=== PATIENT | male | born 1980 | race Caucasian/White ===

== ENCOUNTER 2019-10-14 22:47 | Emergency (ER) | payer MEDICAID, SELFPAY ==
[2019-10-14 22:48] VITALS: BP 126/85; PULSE 89; RESP 16; TEMP 36.8; BMI 25.3
[2019-10-14 22:51] VITALS: BP 126/85; PULSE 89; RESP 16; TEMP 36.8
--- NOTE | 2019-10-14 23:00 | ED.VIS.GEN ---
History of Present Illness Chief Complaint: Bite Informant: Patient Narrative: Patient presents with a right ankle insect bite that started yesterday today he started developing some erythema. He has no fever chills cough or congestion he has no inguinal pain or any other symptoms he has no immunocompromise state and he has no medical problems. Past Medical History - Allergies and Home Meds Allergies/Adverse Reactions: Allergies No Known Allergies Allergy (Verified 10/14/19 22:51) Primary Care Physician: Mark Delatorre MD [Primary Care Provider] - Past Medical History: None Smoking Status: Never smoker Review of Systems General: Denies: Fever Cardiovascular: Denies: Chest pain Respiratory: Denies: Dyspnea, Cough Musculoskeletal: Reports: - - Right ankle pain as in HPI Skin: Reports: Rash. Denies: Abscess Neurological: Denies: Weakness, Parasthesia Hematologic: Denies: Easy bruising, Easy bleeding Physical Exam Vital Signs/Narrative: Vital Signs Temp Pulse Resp BP 10/14/19 22:51 98.2 F 89 16 126/85 H 10/14/19 22:48 98.2 F 89 16 126/85 H General: Well nourished, Well developed, No Acute Distress ENT: Moist mucous membranes Cardiovascular: Regular rate, Regular rhythm Respiratory: No distress, CTA bilaterally Abdomen: Soft, Nontender Extremities: - - Right ankle on the medial side shows a very small punctate insect bite there is no central necrosis surrounded there is surrounding erythema with slight calor of about 8 cm, there is no crepitus or abscess. Skin: - - Cellulitis as above Neurological: Normal Strength, Normal Sensation Diagnostic/Tx/Re-eval - Medical Decision Making Patient has small surrounding cellulitis, he has immunocompetent. He has no medical problems I feel safe discharging him with p.o. antibiotics he has normal vitals and blood work is not needed at this time. ED Disposition - Plan for ED Patient: Disposition: Home or Assisted Living Diagnosis: Cellulitis Instructions: ED Cellulitis Prescriptions: Smz/Tmp Ds [Bactrim Ds] 1 tab PO BID #20 tab Prescription Printed Cephalexin [Keflex] 500 mg PO 4X/DAY #40 cap Prescription Printed Referrals: Mark Delatorre MD [Primary Care Provider] - 2 Days for wound check
[2019-10-14] MEDS: Smz/Tmp Ds Tablet 1 TABLET PO (23:09)
[2019-10-14] MEDS: Cephalexin 250 MG Capsule 500 MG PO (23:09)
== END 2019-10-14 23:23 | disposition home or self-care (01) ==
LOC: ED 23:18
PROVIDERS: Emergency Provider Emergency Medicine
DX: L03.115 Cellulitis of right lower limb (principal)
CPT/HCPCS: 99283

== ENCOUNTER 2019-11-05 21:24 | Emergency (ER) | payer MEDICAID, SELFPAY ==
[2019-11-05 21:24] VITALS: BP 159/99; PULSE 90; RESP 16; TEMP 36.6; O2SAT 97; BMI 24.3
--- NOTE | 2019-11-05 22:06 | ED.DCSUM_ITS ---
- ER Visit Summary Date of Service: 11/05/19 Chief Complaint: Dental pain History of Present Illness: The patient is a 39 M who presents with left lower dental pain that has been getting worse over the past 3 days. Patient describes it as aching. Patient states it is gradually gotten worse. Patient denies any fevers or chills. Patient states his pain improves somewhat with ibuprofen. Patient states nothing makes it worse. Patient denies any facial or jaw swelling. Patient denies any hot or cold sensitivity. Physical Examination: Vital signs are stable. Patient is afebrile. Patient is in no acute distress. Oral mucosa is pink and moist. There is tenderness to percussion over the left lower second and third molars. There is some mild gingival edema over this area. There is no fluctuance. There is no sublingual edema or lymphadenopathy. Neck is supple. Trachea is midline. There is no JVD. There is no anterior cervical lymphadenopathy. Heart was regular rate and rhythm. Lungs are clear and equal bilaterally. Cranial nerves II through XII are intact. There are no focal motor or sensory deficits. Emergency Department Course and Treatment: Patient was given a dose of Pen-Vee K here. Patient was given a prescription for Pen-Vee K. Patient was instructed to take Tylenol or ibuprofen as needed for pain. Patient was instructed to follow-up with his dentist in 5 to 7 days. Patient understood and was agreeable with the plan. All questions were answered. Disposition: Discharge home Impression: Odontalgia This note was generated with [employer] dictation software. It may contain incorrect words, spelling, and punctuation that were not noted in review of the chart prior to signing ED Disposition - Plan for ED Patient: Disposition: Home or Assisted Living Diagnosis: Odontalgia Instructions: ED C[facility] Dental Prescriptions: Penicillin V Potassium 500 mg PO 4X/DAY #40 tab Prescription Printed Referrals: Care Physician,No Primary [Primary Care Provider] - Dentist,Your [STAFF PHYSICIAN] - 5-7 Days
[2019-11-05] MEDS: Penicillin Vk 250 MG Tablet 500 MG PO (22:43)
== END 2019-11-05 22:49 | disposition home or self-care (01) ==
LOC: ED 22:14
PROVIDERS: Emergency Provider Emergency Medicine
DX: K08.89 Other specified disorders of teeth and supporting structures (principal)
CPT/HCPCS: 99283

== ENCOUNTER 2020-03-26 16:15 | Emergency (ER) | payer MEDICAID, SELFPAY ==
[2020-01-24 09:41] VITALS: BMI 26.8
[2020-03-26 16:16] VITALS: BP 148/90; PULSE 94; RESP 18; TEMP 36.2; O2SAT 98; BMI 25.8
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
== END 2020-03-26 16:54 | disposition home or self-care (01) ==
LOC: ED 16:51
PROVIDERS: Emergency Provider Emergency Medicine
DX: S16.1XXA Strain of muscle, fascia and tendon at neck level, initial encounter (principal); V89.2XXA Person injured in unspecified motor-vehicle accident, traffic, initial encounter; Z87.891 Personal history of nicotine dependence
CPT/HCPCS: 72040; 99282

== ENCOUNTER 2020-04-04 18:59 | Emergency (ER) | payer MEDICAID, SELFPAY ==
[2020-04-04 19:01] VITALS: BP 139/86; PULSE 110; RESP 16; TEMP 36.3; O2SAT 100; BMI 27.8
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
--- NOTE | 2020-04-04 21:07 | ED.DEP ---
ED Disposition - Plan for ED Patient: Instructions: Tinnitus (Ringing in the Ears), ED Headache, Tension Prescriptions: cycloBENZAPRine HCl [Flexeril] 10 mg PO TID PRN #20 tab PRN Reason: Muscle Spasm Prescription Printed Referrals: Care Physician,No Primary [Primary Care Provider] - Quan Salas MD [STAFF PHYSICIAN] - 3-5 Days
[2020-04-04 21:16] VITALS: PULSE 84; RESP 18
== END 2020-04-04 21:18 | disposition home or self-care (01) ==
LOC: ED 20:17
PROVIDERS: Emergency Provider Emergency Medicine
DX: S16.1XXA Strain of muscle, fascia and tendon at neck level, initial encounter (principal); H93.19 Tinnitus, unspecified ear; G44.209 Tension-type headache, unspecified, not intractable; V89.2XXA Person injured in unspecified motor-vehicle accident, traffic, initial encounter
CPT/HCPCS: 70450; 99282